=== PATIENT | female | born 1950 ===

== ENCOUNTER → 2017-07-16 | Outpatient (REF) | payer MEDICARE | LOC: M LAB REF 16:56 | DX: L90.0 Lichen sclerosus et atrophicus (principal) | CPT/HCPCS: 87255 ==

== ENCOUNTER → 2017-09-15 | Outpatient (REF) | payer MEDICARE ==
[2017-09-21 14:28] LABS: HPV LOW VOL RFLX Negative (Negative)
== END ==
LOC: M LAB REF 13:37
DX: Z12.4 Encounter for screening for malignant neoplasm of cervix (principal)
CPT/HCPCS: G0123